=== PATIENT | male | born 1980 | race Caucasian/White ===

== ENCOUNTER 2022-12-25 19:43 | Emergency (ER) | payer SELFPAY ==
[2022-12-25 19:54] VITALS: BP 129/79; PULSE 66; RESP 18; TEMP 36.8; O2SAT 96; BMI 28.4
--- NOTE | 2022-12-25 20:32 | CRLHL7_ITS ---
For Patients: As a result of the Cures Act, medical imaging exams and procedure reports are released immediately into your electronic medical record. You may view this report before your referring provider. If you have questions, please contact your health care provider. INDICATION: Trauma. Fall. Pain. TECHNIQUE: Two views of the right tibia and fibula. FINDINGS: There is a subtle lucency through the midportion of the tibia. This could reflect a subtle nondisplaced fracture. This however is not seen on the lateral view. There is soft tissue swelling involving the proximal to mid calf. Negative fibula. IMPRESSION: 1. Subtle lucency mid right tibia. This could reflect a subtle nondisplaced fracture. Consider radiographic followup after appropriate treatment. 2. Right calf soft tissue swelling. Dictated by Shiv Combs MD @ 12/25/2022 9:53:12 PM (Electronically Signed)
--- NOTE | 2022-12-25 20:33 | CRLHL7_ITS ---
For Patients: As a result of the Cures Act, medical imaging exams and procedure reports are released immediately into your electronic medical record. You may view this report before your referring provider. If you have questions, please contact your health care provider. INDICATION: Trauma. Fall. Pain. TECHNIQUE: Two views of the left humerus. FINDINGS: Negative. No fracture or dislocation. No intrinsic skeletal lesion. IMPRESSION: Negative left humerus. Dictated by Shiv Combs MD @ 12/25/2022 9:54:29 PM (Electronically Signed)
--- NOTE | 2022-12-25 20:33 | CRLHL7_ITS ---
For Patients: As a result of the Cures Act, medical imaging exams and procedure reports are released immediately into your electronic medical record. You may view this report before your referring provider. If you have questions, please contact your health care provider. INDICATION: Trauma. Fall. Pain. TECHNIQUE: Three views of the right hand. FINDINGS: Flexion involving the interphalangeal joint of the right 5th finger. Please correlate with the exact site of the patient`s trauma and pain. This could be posttraumatic in nature. No fracture fragment. No dislocation. IMPRESSION: Flexion across the interphalangeal joint of the right 5th finger possibly acute and related to recent trauma. Please correlate clinically. The examination is otherwise negative. Dictated by Shiv Combs MD @ 12/25/2022 9:57:10 PM (Electronically Signed)
--- NOTE | 2022-12-25 22:20 | ED_ITS ---
HPI - General Adult General Date Seen: 12/25/22 Chief complaint: Fall/Minor Trauma Stated complaint: Slipped and fell at work Time Seen by Provider: 12/25/22 22:14 History of Present Illness HPI narrative: 42-year-old male presenting to the ER today with his friend (who interprets Serbian to Turkmen for him) for evaluation of injuries that occurred in a work related fall about 2 weeks ago. Fall was on 12/12. 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 He apparently fell about 5 ft and caught himself on some boards. He injured his right hand. In particular he is having pain involving the MCP of his index finger and middle finger as well as the MCP of his 5th finger. He feels like the MCP joint of his index finger is loose and lax and wiggle sideways. He notes that his 5th finger is now curved, a bit rotated, and cannot flex into a fist.He has had a previous laceration to the ulnar border of his right hand 5th digit but he says there is not a chronic deformity of the finger from that cut. He also suffered a bruise to his left humerus that is now healing. No residual pain in that area. He also suffered a bruise and pain to his right mid tibia. He was initially bruised and swollen and difficult to walk on but has been getting better as the days go by. He came to the ER tonight with his friend. It sounds like he had been trying to stay active and working on his job site because he is in desperate need of money to sent home to his family because they were involved in a natural disaster. Unfortunately his employer is now refusing to pay him. He and his friend contacted an attorney recruiter today to figure out his legal options. The and attorney recruiter encouraged him to come to the doctor to be checked out for his injuries. He did not hit his head or injure his neck in the fall. No other injuries. He is otherwise healthy. History limited by language barrier. History obtained initially through iPad based Serbian-Turkmen bilingual interpreter. Subsequently the patient is bilingual friend arrived and preferred to interpret in lieu of the formal bilingual interpreter. Related Data Home Medications Medication Instructions Recorded Confirmed No Known Home Medications 12/25/22 12/25/22 Allergies Allergy/AdvReac Type Severity Reaction Status Date / Time No Known Drug Allergies Allergy Verified 12/25/22 19:59 PFSH PFS Social History Smoking Status: Never smoker Do you use any of these nicotine containing products: None How often do you have a drink containing alcohol: never AUDIT-C Alcohol total score: 0 Non-prescribed substance use: denies use Exam Const: Vital Signs, click to edit/add: Vital Signs - 24 hr 12/25/22 19:54 Temperature 98.2 F Pulse Rate [Pulse Oximeter] 66 Respiratory Rate 18 Blood Pressure [Ri ght Upper Arm] 129/79 Pulse Oximetry 96 Oxygen Delivery Me thod Room Air Course Vital Signs Vital signs: Initial Vital Signs Temperature 98.2 F 12/25/22 19:54 Temperature Source Temporal Artery Scan 12/25/22 19:54 Pulse Rate 66 12/25/22 19:54 Respiratory Rate 18 12/25/22 19:54 Blood Pressure 129/79 12/25/22 19:54 Blood Pressure Mean 95 12/25/22 19:54 Blood Pressure Position Sitting 12/25/22 19:54 Pulse Oximetry 96 12/25/22 19:54 Oxygen Delivery Method Room Air 12/25/22 19:54 Vital Signs Temperature 98.2 F 12/25/22 19:54 Pulse Rate 66 12/25/22 19:54 Respiratory Rate 18 12/25/22 19:54 Blood Pressure 129/79 12/25/22 19:54 Pulse Oximetry 96 12/25/22 19:54 Oxygen Delivery Method Room Air 12/25/22 19:54 Temperature 98.2 F 12/25/22 19:54 Pulse Rate 66 12/25/22 19:54 Respiratory Rate 18 12/25/22 19:54 Blood Pressure 129/79 12/25/22 19:54 Pulse Oximetry 96 12/25/22 19:54 Oxygen Delivery Method Room Air 12/25/22 19:54 Medical Decision Making MDM Narrative Medical decision making narrative: 1. Patient's worst area of pain is in his right hand. He is endorsing pain over the distal metacarpals and MCP joints of the 2nd and 3rd digits as well as the 4th and 5th digits. He has an apparent laxity of the MCP joint of the index finger and a curvilinear deformity with possible rotation of the 5th digit. X- rays are fortunately negative for any fracture or dislocation. Suspicion is here for probable soft tissue injury such as tendon or ligament injury the tendons of the index finger and the 5th digit. Will place him into a ulnar gutter splint to immobilize his 5th digit especially which is the most deformed. 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 Encouraged him to rest his right hand. Provided with his work note. He will need orthopedic follow-up in the clinic for re-evaluation. 2. He is also still having some residual pain in the right mid tibia. He does have evidence for healing bruising there. He is able to bear weight today but apparently has been having a lot of pain with weight-bearing for the 1st week or 2 after the fall. X-rays are equivocal for possible fracture versus feeding vessel in the right mid tibia. This would be a nondisplaced fracture. He is neurovascularly intact in the leg. No evidence for compartment syndrome. Discussed the potential fracture for with the patient and his family. He feels like he is doing better now than he was initially. Will continue limited weight-bearing. Recommended rest. 3. He also struck his upper arm in the fall. X-rays are negative for any fracture. He says let is largely now improved. Discussed splint care and need for orthopedic follow-up. His friend request pain killers for him because he has been so uncomfortable at home. I agreed to provide a prescription for Bet[place], 12 tablets, through [facility]. Sedation precautions reviewed. Imaging Data xr right hand: Attestation: I have reviewed the pertinent imaging results. Radiologist's impression: IMPRESSION: Flexion across the interphalangeal joint of the right 5th finger possibly acute and related to recent trauma. Please correlate clinically. The examination is otherwise negative. xr humerus R: Attestation: I have reviewed the pertinent imaging results. Radiologist's impression: IMPRESSION: Negative left humerus. xr R rib fib: Attestation: I have reviewed the pertinent imaging results. Radiologist's impression: IMPRESSION: 1. Subtle lucency mid right tibia. This could reflect a subtle nondisplaced fracture. Consider radiographic followup after appropriate treatment. 2. Right calf soft tissue swelling. Discharge Plan Discharge Clinical Impression: Leg injury, Finger injury, Fall Patient Disposition: Home, Self-Care Condition: Stable Instructions: Finger Sprain (ED) Additional Instructions: Please keep the splint on and keep the splint clean and dry. Do not use right hand for grasping or lifting things until you are seen by the orthopedic clinic and cleared to return to full duty. Call the [facility] at [phone] tomorrow morning to schedule an ER follow-up appointment Prescriptions: No Action No Known Home Medications Stand Alone Forms: [employer] Info Instructions
[2022-12-25 22:30] VITALS: BP 118/68; PULSE 71; RESP 16; TEMP 36.9; O2SAT 98
[2022-12-25] MEDS: HYDROCODONE-ACETAMIN 5-325 MG 1 TAB PO (23:20)
== END 2022-12-25 23:40 | disposition home or self-care (01) ==
LOC: ED 23:33
PROVIDERS: Emergency Provider Emergency Medicine
DX: S69.91XA Unspecified injury of right wrist, hand and finger(s), initial encounter (principal); S89.91XA Unspecified injury of right lower leg, initial encounter; W17.89XA Other fall from one level to another, initial encounter; Y99.0 Civilian activity done for income or pay
CPT/HCPCS: 29125; 73060; 73130; 73590; 99283; 99284; A9270